=== PATIENT | female | born 1990 | race Two or more races ===

== ENCOUNTER 2024-10-18 11:25 | Outpatient (CLI) | payer MEDICAID, SELFPAY ==
[2024-10-18] VITALS (23 sets, daily range): BP systolic 122–128; BP diastolic 76–77; PULSE 81–100; RESP 18; TEMP 36.9; O2SAT 81–99; BMI 41.3
[2024-10-18 13:04] LABS: Collection Type, Urine Clean Catch
[2024-10-18 13:16] LABS: Bacteria,Urine 2+; Bilirubin,Urine Negative (Negative); Blood,Urine Negative (Negative); Clarity,Urine Clear (Clear/Hazy); Color,Urine Colorless (Lt Yel-Yel); Glucose, Urine Negative (Negative); Ketones,Urine Negative (Negative); Leukocyte Esterase,Urine Positive (Negative); Nitrite,Urine Negative (Negative); PH,Urine 6.5 (5.0-7.0); Protein,Urine Negative (Neg - Trace); RBC,Urine 1 /hpf (0-3); Specific Gravity,Urine 1.005 (1.001-1.035); Squamous Epithelial Cell,Urine 4 /hpf (0-5); Urobilinogen,Urine Negative mg/dL (0.0-1.0); WBC,Urine 4 /hpf (0-5)
== END 2024-10-18 13:45 | disposition home or self-care (01) ==
LOC: S4S1 11:26 → S4SX 11:26
PROVIDERS: Referring Provider Obstetrics & Gynecology; Visit Provider Obstetrics & Gynecology
DX: Z34.83 Encounter for supervision of other normal pregnancy, third trimester (principal); Z36.9 Encounter for antenatal screening, unspecified; Z3A.30 30 weeks gestation of pregnancy
CPT/HCPCS: 59025; 81001

== ENCOUNTER 2024-10-26 03:20 | Observation (INO) | payer MEDICAID, SELFPAY ==
[2024-10-26] VITALS (32 sets, daily range): BP systolic 100–112; BP diastolic 65–71; PULSE 78–99; RESP 17; TEMP 36.8; O2SAT 97–100; BMI 41.2
[2024-10-26] MEDS: SODIUM CHLORIDE 0.9% 1000 ML 1,000 ML 125 ML IV (04:10)
[2024-10-26 04:41] LABS: Collection Type, Urine Clean Catch
[2024-10-26 05:16] LABS: Bilirubin,Urine Negative (Negative); Blood,Urine 2+ (Negative); Clarity,Urine Turbid (Clear/Hazy); Color,Urine Yellow (Lt Yel-Yel); Culture Indicated,Urine Contaminated; Glucose, Urine Negative (Negative); Ketones,Urine Negative (Negative); Leukocyte Esterase,Urine Positive (Negative); Nitrite,Urine Negative (Negative); Protein,Urine Trace (Neg - Trace); RBC,Urine 5 /hpf (0-3); Specific Gravity,Urine 1.016 (1.001-1.035); Squamous Epithelial Cell,Urine 11 /hpf (0-5); Urobilinogen,Urine Negative mg/dL (0.0-1.0); WBC,Urine 62 /hpf (0-5)
[2024-10-26 05:18] LABS: FFN Specimen Descripton Clr Colrless Aqueous; Fetal Fibronectin Negative (Negative)
[2024-10-26] MEDS: cephALEXin 250 MG CAPSULE 500 MG PO (05:38)
--- NOTE | 2024-10-26 15:54 | PC.NURSE ---
Phone call received from patient stating her prescription was not called into the [facility] pharmacy on [address] this morning at 0546. [facility] pharmacy [address] called spoke to Dominga states that prescription has not been received by pharmacy or left on voicemail. Keflex 500mg PO BID x 7 days called into pharmacy.
== END 2024-10-26 05:46 | disposition home or self-care (01) ==
PROVIDERS: Admitting Provider Obstetrics & Gynecology; Visit Provider Nurse Practitioner Women's Health
DX: O46.93 Antepartum hemorrhage, unspecified, third trimester (principal); Z3A.31 31 weeks gestation of pregnancy
CPT/HCPCS: 59025; 59899; 81001; 82731; J7030; A9270

== ENCOUNTER 2024-11-08 01:26 | Inpatient (IN) | payer MEDICAID, SELFPAY ==
[2024-11-08] VITALS (272 sets, daily range): BP systolic 90–140; BP diastolic 51–87; PULSE 73–169; RESP 16–98; TEMP 36.4–36.8; O2SAT 59–100; BMI 41.3
[2024-11-08] MEDS: TERBUTALINE SULF INJ 1 MG/ML VIAL 0.25 MG SC ×2 (03:05→03:30)
[2024-11-08] MEDS: BETAMET ACET/BETAMET NA PH (Celestone) 6 MG/ML VIAL 12 MG IM (03:06)
[2024-11-08] MEDS: SODIUM CHLORIDE 0.9% 1000 ML 1,000 ML 999 ML IV (03:40)
--- NOTE | 2024-11-08 04:01 | XR_ITS ---
Examination: Complete OB ultrasound greater than 14 weeks Date and time of exam: November 08, 2024 at 0500 hrs. Indications: Pelvic contractions beginning 2100 hrs. Last night Findings: Viable intrauterine single fetus with single amniotic sac presentation cephalic Cardiac motion 160 BPM Placenta anterior grade 2 Umbilical cord insertion seen Amniotic fluid index 10.6 cm Cervix 4.0 cm Ovaries obscured by bowel gas. Composite estimated gestational age based on BPD, head circumference, abdominal circumference, femur length is 33 weeks 3 days Estimated weight 2188.9 g. Survey of intracranial anatomy, spinal anatomy, abdominal anatomy, four-chamber heart performed with no abnormalities identified. Impression: Viable intrauterine gestation cephalic presentation Estimated gestational age 33 weeks 3 days Estimated weight 2188.9 g.
[2024-11-08] MEDS: NIFEdipine 10 MG CAPSULE 20 MG PO (04:33)
[2024-11-08] MEDS: Ampicillin Inj 2,000 MG in SODIUM CHLORIDE 0.9% (P) 100 ML 200 MG IV (05:33)
[2024-11-08 05:58] LABS: Basophils % (Auto) 0 % (0-2.5); Eosinophils # (Auto) 0.2 Thou/mm3 (0.0-0.5); Eosinophils % (Auto) 2 % (0-10); Hematocrit 41.4 % (36.0-46.0); Hemoglobin 14.6 g/dL (12.0-16.0); Immature Granulocytes % (Auto) 1 % (0-0); Immature Granulocytes Auto 0.07 Thou/mm3 (0.00-0.00); Lymphocytes # (Auto) 2.1 Thou/mm3 (1.0-4.8); Lymphocytes % (Auto) 21 % (10-50); Mean Corpuscular HGB Conc 35.3 g/dl (31.0-37.0); Mean Corpuscular Hemoglobin 30.3 pg (25.0-35.0); Mean Corpuscular Volume 86 fL (80-100); Monocytes # (Auto) 0.9 Thou/mm3 (0.0-0.8); Monocytes % (Auto) 8 % (0-12); Neutrophils # (Auto) 7.1 Thou/mm3 (1.8-7.7); Neutrophils % (Auto) 69 % (37-80); Nucleated Red Blood Cell % 0 /100 WBC (0); Platelet Count 142 Thou/mm3 (140-440); RDW Standard Deviation 43.7 fL (36.4-46.3); Red Blood Count 4.82 Miln/mm3 (4.00-5.20); White Blood Count 10.4 Thou/mm3 (3.6-11.0)
[2024-11-08 06:39] LABS: Syphilis Nonreactive (Nonreactive)
--- NOTE | 2024-11-08 07:55 | PRELIM_ITS ---
Obstetric ultrasound. November 08, 2024 0500 hours Clinical history: Comp OB, EFW, and Presentation No prior study is available for comparison. Findings:There is a gravid uterus with a live fetus in ceph alic presentation of mean gestational age 33 weeks and 3 days (by biometry). cardiac acti vity is present at a heart rate of 160 beats per minute. The placenta is anterior in location, maturi ty grade 2. There is no evidence of placenta previa or retroplacental hemorrhage. Amniotic fluid is a dequate (MARCIAL = 10.6 cm). Estimated weight is 2188.9 grams+/- 324grams. Estimated due date by radha marino is 12/24/2024.Cervical length is 4 cm.Impression:Gravid uterus with a single live fetus in c ephalic presentation of mean gestational age 33 weeks and 3 days. Report Electronically Signed By: Sadie Salazar 11/08/2024 7:54:41 AM [EST]
[2024-11-08] MEDS: MEPERIDINE INJ 50 MG/ML VIAL 75 MG IVP (08:00)
[2024-11-08] MEDS: SODIUM CHLORIDE 0.9% 1000 ML 1,000 ML 125 ML IV ×2 (08:01→17:43)
[2024-11-08] MEDS: PROMETHAZINE INJ 25 MG/ML VIAL IV (08:17)
--- NOTE | 2024-11-08 08:53 | PD.LDHP ---
Documentation for date of: 11/08/24 OB Labor/Induct. HPI History of Present Illness : 6 Term pregnancies: 4 pregnancies: 0 Living children: 4 History of Abortions: Spontaneous and Elective: 1 History of sections: No History of : No History of Present Adequate Care: Yes Review of Systems Review of Systems Systems Reviewed: All systems reviewed, normal except as documented Past Medical History Surgical History SURGICAL: Negative Section Meds Home Medications and Allergies Home Medications ?Medication ?Instructions ?Recorded ?Confirmed ?Type vit no.95-ferrous 1 tab PO 1XD 10/18/24 11/08/24 History fumarate 28 mg-folic acid 800 mcg tablet () metformin 500 mg tablet 500 mg PO 10/26/24 10/26/24 History Allergies Allergy/AdvReac Type Severity Reaction Status Date / Time No Known Allergies Allergy Verified 11/08/24 02:14 OB Exam Physical Exam Vital signs: Temp Pulse Resp BP Pulse Ox 97.7 F 99 18 119/68 94 L 11/08/24 07:14 11/08/24 08:31 11/08/24 07:14 11/08/24 08:31 11/08/24 08:50 OB Results Labs 11/08/24 05:25 Labs: Short CBC 11/08/24 Range/Units 05:25 WBC 10.4 (3.6-11.0) Thou/mm3 Hgb 14.6 (12.0-16.0) g/dL Hct 41.4 (36.0-46.0) % Plt Count 142 (140-440) Thou/mm3
[2024-11-08] MEDS: Ampicillin Inj 1,000 MG in SODIUM CHLORIDE 0.9% (P) 50 ML 50 MG IV ×3 (09:32→20:55)
[2024-11-08] MEDS: metFORMIN 500 MG TABLET PO ×2 (09:32→20:54)
[2024-11-08] MEDS: INSULIN HUM REGULAR 1 UNIT/0.01 ML (PER UNIT) SC ×2 (11:17→17:49)
[2024-11-08] MEDS: NIFEdipine 10 MG CAPSULE PO ×2 (12:42→20:54)
--- NOTE | 2024-11-08 20:31 | PC.NURSE ---
called and given patient update and status. Provider notified cervical exam unchanged and dark red blood noted upon checking cervix. Ordered to keep patient overnight and recheck cervix at change of shift as well as repeat CBC and complete OB US in the morning.
[2024-11-08] MEDS: fentaNYL CIT INJ 50 mCg/ML AMP 2ML 100 MCG IV (21:30)
[2024-11-09] VITALS (325 sets, daily range): BP systolic 97–135; BP diastolic 54–74; PULSE 71–124; RESP 16–20; TEMP 36.5–36.7; O2SAT 92–99
[2024-11-09] MEDS: Ampicillin Inj 1,000 MG in SODIUM CHLORIDE 0.9% (P) 50 ML 50 MG IV ×3 (00:53→08:32)
[2024-11-09] MEDS: BETAMET ACET/BETAMET NA PH (Celestone) 6 MG/ML VIAL 12 MG IM (03:04)
[2024-11-09] MEDS: SODIUM CHLORIDE 0.9% 1000 ML 1,000 ML 125 ML IV (03:13)
[2024-11-09 06:44] LABS: Basophils % (Auto) 0 % (0-2.5); Eosinophils % (Auto) 0 % (0-10); Hemoglobin 12.9 g/dL (12.0-16.0); Immature Granulocytes % (Auto) 1 % (0-0); Immature Granulocytes Auto 0.09 Thou/mm3 (0.00-0.00); Lymphocytes # (Auto) 1.5 Thou/mm3 (1.0-4.8); Lymphocytes % (Auto) 13 % (10-50); Mean Corpuscular HGB Conc 33.9 g/dl (31.0-37.0); Mean Corpuscular Hemoglobin 29.7 pg (25.0-35.0); Mean Corpuscular Volume 87 fL (80-100); Monocytes # (Auto) 0.5 Thou/mm3 (0.0-0.8); Monocytes % (Auto) 4 % (0-12); Neutrophils # (Auto) 9.5 Thou/mm3 (1.8-7.7); Neutrophils % (Auto) 82 % (37-80); Nucleated Red Blood Cell % 0 /100 WBC (0); Platelet Count 161 Thou/mm3 (140-440); Red Blood Count 4.35 Miln/mm3 (4.00-5.20); White Blood Count 11.6 Thou/mm3 (3.6-11.0)
--- NOTE | 2024-11-09 07:00 | XR_ITS ---
Examination: Complete OB ultrasound greater than 14 weeks Date and time of exam: November 09, 2024 0853 hrs. Indications: Bloody discharge and pelvic contractions today Findings: Viable intrauterine single fetus with single amniotic sac presentation cephalic spine maternal right. Cardiac motion 153 BPM. Placenta anterior grade 2 no abruption Amniotic fluid incompletely visualized Ovaries obscured by bowel gas. Composite estimated gestational age based on BPD, head circumference, abdominal circumference, femur length is 36 weeks 1 day Estimated weight 2828 g. Survey of intracranial anatomy, spinal anatomy, abdominal anatomy, four-chamber heart performed with no abnormalities identified. Impression: Viable intrauterine gestation cephalic presentation No placental abruption Estimated gestational age 36 weeks 1 day.
[2024-11-09] MEDS: NIFEdipine 10 MG CAPSULE PO (07:15)
[2024-11-09] MEDS: metFORMIN 500 MG TABLET PO (08:31)
--- NOTE | 2024-11-09 12:39 | ESHP_ITS ---
Documentation for date of: 11/09/24 OB Labor/Induct. HPI History of Present Illness : 5 Para: 3 Term pregnancies: 3 pregnancies: 0 Living children: 3 History of Abortions: Spontaneous and Elective: 1 History of sections: No History of : No History of present illness: The patient, Brigida Xiao, is a , 33-week and 4-day woman who has been hospitalized for a couple of days. Patient initially presented with contractions every 3 to 5 minutes and she was observed antepartum for labor symptoms. She has made no cervical change. However she continues to have vaginal bleeding and on today's ultrasound she has complete anhydramnios. Current is significant for gestational diabetes which was diagnosed by an abnormal 2-hour glucose tolerance test just recently and patient has not initiated any treatment. She is receiving sliding scale insulin coverage during her hospital admission The latest ultrasound revealed no fluid around the baby, and the fetus is measuring larger at 36 weeks. The patient has not experienced any leaking of fluid. She expressed concern about the potential transfer of her baby to another facility but was reassured by the doctor that the baby would not need to be transferred as she is very close to 34 weeks gestation. The doctor also confirmed that the baby has received the necessary injections for lung development and that pediatric doctors are available at the current facility. I also proceeded to perform a bedside ultrasound which confirms the anhydramnios and possible marginal abruption. Composite estimated gestational age based on BPD, head circumference, abdominal circumference, femur length is 36 weeks 1 day Estimated weight 2828 g. History of Present Adequate Care: Yes Past Medical History Surgical History SURGICAL: Negative Section Meds Home Medications and Allergies Home Medications ?Medication ?Instructions ?Recorded ?Confirmed ?Type vit no.95-ferrous 1 tab PO 1XD 10/18/24 11/08/24 History fumarate 28 mg-folic acid 800 mcg tablet () metformin 500 mg tablet 500 mg PO 10/26/24 10/26/24 History Allergies Allergy/AdvReac Type Severity Reaction Status Date / Time No Known Allergies Allergy Verified 11/08/24 02:14 OB Exam Physical Exam Vital signs: Temp Pulse Resp BP Pulse Ox 97.7 F 84 20 119/73 97 11/09/24 08:37 11/09/24 12:18 11/09/24 08:37 11/09/24 12:18 11/09/24 12:34 Constitutional Constitutional: no acute distress Routine HEENT Exam Head: Present normocephalic and atraumatic Eye: Present EOMI and PERRL ENT: Present mucous membranes moist Routine Neck Exam Neck: Present supple and trachea midline Routine Cardiovascular Exam Cardiovascular: Present RRR Routine Abdominal Exam Abdominal: Present soft and normoactive bowel sounds Detailed Labor and Delivery Exam Dilation (cm): 1 Effacement (%): 30 Cervix position: posterior Baseline heart rate: 145 monitor accelerations: 15x15 monitor decelerations: None Routine Extremities Exam Extremities: Present full ROM Routine Skin Exam Skin: Present intact, dry and warm Routine Neurological Exam Neurological: Present alert, oriented X3 and CN II-XII intact Routine Psychiatric Exam Psychiatric: Present normal affect and normal thought process OB Results Labs 11/09/24 06:10 Labs: Short CBC 11/09/24 Range/Units 06:10 WBC 11.6 H (3.6-11.0) Thou/mm3 Hgb 12.9 (12.0-16.0) g/dL Hct 38.0 (36.0-46.0) % Plt Count 161 (140-440) Thou/mm3 OB Assessment & Plan Assessment and Plan (1) Gestational diabetes: Status: Acute (2) Anhydramnios in third trimester: Status: Acute (3) Placental abruption in third trimester: Status: Acute Assessment and plan: Anhydramnios: - Confirmed by ultrasound, no fluid around baby. - Doctor personally verified findings via ultrasound. - Proceed with induction of labor due to risk of umbilical cord compression. Growth Discrepancy: - Gestational age 34 weeks by dates, ultrasound shows 36 weeks. - Monitor growth during induction and labor. Induction of Labor: - Start with vaginal Cervidil for 12 hours, followed by second medication if needed. - Consult peds hospitalist for agreement on induction plan (patient at 33 weeks and 4 days). Possible Placental Abruption: - Ultrasound shows blood clot, suggesting possible abruption. - Closely monitor during induction and labor for signs of worsening abruption or distress. Care: - Patient received two Betamethasone injections for lung maturity. - Coordinate with pediatric doctors for post-delivery care. - Baby likely won't require transfer to another facility (close to 34 weeks)., EFW 2800gms+, c/w 36w EGA Patient Education and Communication: - Have Slovenian-speaking staff explain induction process and reasons to patient. - Clarify to patient that baby won't need facility transfer due to gestational age.
[2024-11-09] MEDS: RINGERS LACTATED 1000 ML 1,000 ML 125 ML IV ×2 (12:50→23:49)
[2024-11-09] MEDS: DINOPROSTONE 10 MG VAG.SUPP VAGINAL (14:50)
[2024-11-09] MEDS: fentaNYL CIT INJ 50 mCg/ML AMP 2ML 100 MCG IV (19:03)
[2024-11-10] VITALS (352 sets, daily range): BP systolic 89–147; BP diastolic 50–91; PULSE 63–107; RESP 16–18; TEMP 36.6–37.3; O2SAT 89–100
[2024-11-10] MEDS: MISOPROSTOL 50 mCg TABLET PO (05:50)
[2024-11-10] MEDS: Ampicillin Inj 1,000 MG in SODIUM CHLORIDE 0.9% (P) 50 ML 50 MG IV ×2 (09:20→13:20)
[2024-11-10] MEDS: OXYTOCIN in NS 30 units 30 UNIT/500 ML BAG IV (13:20)
[2024-11-10] MEDS: OXYTOCIN in NS 20 units 20 UNIT/1,000 ML BAG 125 UNIT IV (17:20)
[2024-11-10] MEDS: METHYLERGONOVINE INJ 0.2 MG/ML VIAL IM (17:26)
--- NOTE | 2024-11-10 17:42 | PD.LDDELS ---
Data ([facility]) Data Hx Section: No : 5 Term: 3 : 0 : 1 Delivery Data ([facility]) Labor Data Stimulated/Augmented: Yes Induction: Yes Method: AROM Rupture Type: AROM Amniotic Fluid: Clear Delivery Data Delivery Date: 11/10/24 Delivery Time: 17:20 Gestational age (weeks): 33 Gestational age (days): 4 Placenta Delivery Date: 11/10/24 Placenta Delivery Time: 17:40 Delivered by: Long Abreu Supervisor Screen Making at delivery: Yes Delivery Method Delivery: Vaginal Presentation: Vertex Placenta Placenta Delivery: Spontaneous Placenta Cultures Obtained: Yes Placenta Sent for Examination: Yes Cord Sample: Cord Blood Obtained Episiotomy Episiotomy: None EBL Estimated blood loss (ml): 200 Umbilical Cord Umbilical Vessels: 3 Nuchal Cord: Not Applicable Body Cord: Not Applicable [place] Data ([facility]) [place] Data Infant Gender: Female weight (lbs): 2560 g length: 49.53 cm
[2024-11-10] MEDS: MINERAL OIL 30 ML UDC TOP (18:02)
[2024-11-10] MEDS: TRANEXAMIC ACID 1,000 MG IVPB 1,000 MG/100 ML BAG 200 MG IV (18:03)
[2024-11-10] MEDS: HYDROcodone/APAP 5/325 TABLET 2 TAB PO (18:43)
--- NOTE | 2024-11-10 19:15 | PC.NURSE ---
BAKRI INSERTED BY MD POOLE AT 1740. 300ML STERILE WATER INSERTED. ATTACHED TO COLLAZO BAG TO DRAIN AT BEDSIDE. SECURED TO LEG WITH TAPE.
--- NOTE | 2024-11-10 20:58 | XR_ITS ---
Examination: AP chest single view Technique: AP portable semiupright chest single view Exam date and time: November 10, 2024 2112 hrs. Comparison June 01, 2021 Indications: Abnormal lung zones on auscultation today, coughing Findings: Early pneumonia left base Normal heart size The osseous structures are intact Impression: Early pneumonia left base
--- NOTE | 2024-11-10 21:02 | PC.NURSE ---
2034 Breast pump and education given to pt on how long to pump and how often. Pump set up by RN and pt began pumping with no further questions.
[2024-11-10] MEDS: PIPER/TAZO INJ 3.375 GM in SODIUM CHLORIDE 0.9% (P) 50 ML IV (22:24)
[2024-11-10] MEDS: AZITHROMYCIN INJ 500 MG in SODIUM CHLORIDE 0.9% 250 ML 250 ML 250 MG IV (22:52)
[2024-11-11] MEDS: IBUPROFEN TAB 400 MG TABLET 800 MG PO ×2 (03:10→15:22)
[2024-11-11 03:12] VITALS: BP 106/70; PULSE 71; RESP 16; TEMP 36.9; O2SAT 95
[2024-11-11 06:51] LABS: Basophils % (Auto) 0 % (0-2.5); Eosinophils % (Auto) 0 % (0-10); Hematocrit 35.5 % (36.0-46.0); Hemoglobin 12.4 g/dL (12.0-16.0); Immature Granulocytes % (Auto) 1 % (0-0); Lymphocytes # (Auto) 2.2 Thou/mm3 (1.0-4.8); Lymphocytes % (Auto) 15 % (10-50); Mean Corpuscular HGB Conc 34.9 g/dl (31.0-37.0); Mean Corpuscular Volume 86 fL (80-100); Monocytes # (Auto) 1.2 Thou/mm3 (0.0-0.8); Monocytes % (Auto) 9 % (0-12); Neutrophils # (Auto) 10.9 Thou/mm3 (1.8-7.7); Neutrophils % (Auto) 75 % (37-80); Nucleated Red Blood Cell # 0.05 Thou/mm3 (0.00-0.00); Nucleated Red Blood Cell % 0 /100 WBC (0); Platelet Count 188 Thou/mm3 (140-440); Red Blood Count 4.14 Miln/mm3 (4.00-5.20); White Blood Count 14.5 Thou/mm3 (3.6-11.0)
[2024-11-11] MEDS: DOCUSATE SOD 100 MG CAPSULE PO (07:42)
[2024-11-11] MEDS: PIPER/TAZO 3.375 GM 50 ML IV ×3 (07:42→22:28)
[2024-11-11 08:00] VITALS: BP 104/71; PULSE 76; RESP 18; TEMP 36.4; O2SAT 95
[2024-11-11 11:40] VITALS: BP 108/73; PULSE 70; RESP 18; TEMP 36.3; O2SAT 94
[2024-11-11 15:33] VITALS: BP 109/71; PULSE 77; RESP 16; TEMP 36.4; O2SAT 97
--- NOTE | 2024-11-11 17:16 | PD.LDPPPRG ---
Subjective Subjective Interval history[facility] doing well. Has been tolerating diet , denies nause a, no fever , slight pain in her belly 02/13. Admits coughing Exam Vital Signs Temp Pulse Resp BP Pulse Ox O2 Del Method 97.5 F 77 16 109/71 97 Room Air 11/11/24 15:33 11/11/24 15:33 11/11/24 15:33 11/11/24 15:33 11/11/24 15:33 11/11/24 15:33 Constitutional Constitutional: no acute distress Routine HEENT Exam Head: Present normocephalic and atraumatic Eye: Present EOMI and PERRL ENT: Present mucous membranes moist Routine Neck Exam Neck: Present supple and trachea midline Routine Respiratory Exam Respiratory: Present chest non-tender, lungs clear, normal breath sounds and no resp distress Routine Cardiovascular Exam Cardiovascular: Present RRR Routine Abdominal Exam Abdominal: Present soft and normoactive bowel sounds Routine Extremities Exam Extremities: Present full ROM Routine Skin Exam Skin: Present intact, dry and warm Routine Neurological Exam Neurological: Present alert, oriented X3 and CN II-XII intact Routine Psychiatric Exam Psychiatric: Present normal affect and normal thought process Objective Labs 11/11/24 06:36 Labs: Laboratory Results - last 24 hr 11/11/24 06:36 WBC 14.5 H RBC 4.14 Hgb 12.4 Hct 35.5 L MCV 86 MCH 30.0 MCHC 34.9 RDW Std Deviation 46.0 Plt Count 188 Neut % (Auto) 75 Lymph % (Auto) 15 [place] % (Auto) 9 Eos % (Auto) 0 Baso % (Auto) 0 Neut # (Auto) 10.9 H Lymph # (Auto) 2.2 [place] # (Auto) 1.2 H Eos # (Auto) 0.0 Baso # (Auto) 0.0 Immature Gran # (Auto) 0.10 H Absolute Nucleated RBC 0.05 H Immature Gran % 1 H Nucleated RBC % 0 Assessment & Plan Problem List (1) Gestational diabetes: Status: Acute (2) Anhydramnios in third trimester: Status: Acute (3) Placental abruption in third trimester: Status: Acute Assessment Comment Assessment comment: 34 y/o s/p vaginal delivery, PPH, Bakri placement, PPD#1 Bleeding slight on glenn pad pneumonia on XRay, started on Azithromycin bakri output 50cc, dark , has been glenn same overnight VSS Hb 12.4 today Plan Comment Plan Comment: Bakri to be continued until the output drops to 20-25cc antibiotics to continue Time Spent With Patient Time: Total time spent is greater than 50% in coordination of care (as documented) at patient's floor/unit and/or counseling patient:
[2024-11-11 17:56] LABS: Hematocrit 37.2 % (36.0-46.0); Hemoglobin 12.7 g/dL (12.0-16.0)
[2024-11-11 20:00] VITALS: BP 111/71; PULSE 75; RESP 18; TEMP 36.4; O2SAT 95
[2024-11-11] MEDS: AZITHROMYCIN INJ 500 MG in SODIUM CHLORIDE 0.9% 250 ML 250 ML 250 MG IV (20:58)
[2024-11-12] VITALS: BP 106/73; PULSE 70; RESP 16; TEMP 36.6; O2SAT 95
[2024-11-12 04:00] VITALS: BP 108/70; PULSE 65; RESP 17; TEMP 36.6; O2SAT 97
[2024-11-12 05:35] LABS: Hematocrit 36.9 % (36.0-46.0); Hemoglobin 12.7 g/dL (12.0-16.0)
[2024-11-12] MEDS: PIPER/TAZO 3.375 GM 50 ML IV ×3 (06:00→23:53)
[2024-11-12 08:05] VITALS: BP 105/70; PULSE 67; RESP 17; TEMP 36.8; O2SAT 96
[2024-11-12] MEDS: IBUPROFEN TAB 400 MG TABLET 800 MG PO ×2 (08:35→17:44)
[2024-11-12] MEDS: DOCUSATE SOD 100 MG CAPSULE PO (08:35)
[2024-11-12 12:00] VITALS: BP 99/64; PULSE 62; RESP 16; TEMP 36.8; O2SAT 99
--- NOTE | 2024-11-12 13:52 | PD.LDPPPRG ---
Subjective Subjective Interval history: Patinet seen at bedside , no pain , feels need to use restroom. Exam Vital Signs Temp Pulse Resp BP Pulse Ox O2 Del Method 98.2 F 67 17 105/70 96 Room Air 11/12/24 08:05 11/12/24 08:05 11/12/24 08:05 11/12/24 08:05 11/12/24 08:05 11/12/24 08:05 Constitutional Constitutional: no acute distress Routine HEENT Exam Head: Present normocephalic and atraumatic Eye: Present EOMI and PERRL ENT: Present mucous membranes moist Routine Neck Exam Neck: Present supple and trachea midline Routine Respiratory Exam Respiratory: Present chest non-tender, lungs clear, normal breath sounds and no resp distress Routine Cardiovascular Exam Cardiovascular: Present RRR Routine Abdominal Exam Abdominal: Present soft and normoactive bowel sounds Routine Extremities Exam Extremities: Present full ROM Routine Skin Exam Skin: Present intact, dry and warm Routine Neurological Exam Neurological: Present alert, oriented X3 and CN II-XII intact Routine Psychiatric Exam Psychiatric: Present normal affect and normal thought process Objective Labs 11/12/24 04:58 Labs: Laboratory Results - last 24 hr 11/11/24 11/12/24 17:28 04:58 Hgb 12.7 12.7 Hct 37.2 36.9 Assessment & Plan Problem List (1) Gestational diabetes: Status: Acute (2) Anhydramnios in third trimester: Status: Acute (3) Placental abruption in third trimester: Status: Acute Assessment Comment Assessment comment: 34 y/o s/p VD , PPH Bakri balloon placemnet , POD#2 Bakri and camejo removed already 'hb stable at 12 VSS Plan Comment Plan Comment: Continue PP care will repeat Hb tomorrow morning before discharge Time Spent With Patient Time: Total time spent is greater than 50% in coordination of care (as documented) at patient's floor/unit and/or counseling patient:
[2024-11-12 16:00] VITALS: BP 112/72; PULSE 64; RESP 16; TEMP 36.9; O2SAT 97
[2024-11-12 17:51] LABS: Hematocrit 36.6 % (36.0-46.0); Hemoglobin 12.8 g/dL (12.0-16.0)
[2024-11-12] MEDS: AZITHROMYCIN INJ 500 MG in SODIUM CHLORIDE 0.9% 250 ML 250 ML 250 MG IV (21:28)
[2024-11-12 21:37] VITALS: BP 100/62; PULSE 68; RESP 20; TEMP 36.6; O2SAT 98
[2024-11-13 05:36] VITALS: BP 115/73; PULSE 60; RESP 16; TEMP 36.3; O2SAT 98
[2024-11-13] MEDS: PIPER/TAZO 3.375 GM 50 ML IV (05:43)
[2024-11-13] MEDS: IBUPROFEN TAB 400 MG TABLET 800 MG PO (05:43)
[2024-11-13 08:40] VITALS: BP 116/78; PULSE 65; RESP 18; TEMP 36.7; O2SAT 98
[2024-11-13] MEDS: DOCUSATE SOD 100 MG CAPSULE PO (08:54)
--- NOTE | 2024-11-13 09:38 | PD.LDDS ---
DS: Providers Provider Date of admission: 11/08/24 20:25 Primary care physician: Physician No Primary/Family Admitting Provider: Long Abreu MD Attending Provider on Admission: Judson Alvarez MD Consults: 11/10/24 18:15 Referral Routine Comment: Attending Provider on DC: Angeles Younger MD Discharging Provider: Angeles Younger MD DS: Diagnosis Discharge Diagnosis (1) Placental abruption in third trimester: Status: Acute (2) Anhydramnios in third trimester: Status: Acute (3) Gestational diabetes: Status: Acute (4) Community acquired pneumonia: Status: Acute Problem List Completed Was Problem List Reviewed/Reconciled?: Yes Summary/Hosp Course Brief History: Brigida Paz is a [id number] s/p at 33+wk after undergoing IOL for anhydramnios with marginal placental abruption after presenting with concern for possible PTL, she received betamethasone course prior to induction. Course was complicated by development of left lower lobe pneumonia as noted on CXR and she was started on IV zosyn and azithromycin with improvement in symptoms. Now just slight residual cough, satting 97-99% in room air and afebrile. Baby is in NICU. Patient feels ready for discharge home, meeting all milestones. She has normal vitals and exam. Hemodynamically stable. Peripartum Data Delivery Method: Normal Vaginal Delivery complications: other (LLL pneumonia) Status at Discharge Functional status at discharge: independent ambulation Overall status at discharge: patient is back to baseline Time Spent with Patient Time attestation: Total time spent providing and/or coordinating discharge services: Time spent: Greater than 30 minutes Exam Vital Signs Temp Pulse Resp BP Pulse Ox O2 Del Method 98.1 F 65 18 116/78 98 Room Air 11/13/24 08:40 11/13/24 08:40 11/13/24 08:40 11/13/24 08:40 11/13/24 08:40 11/13/24 08:40 Narrative Exam General: well developed, well nourished, no acute distress, conversant (exam performed with RN for Greek translation) Cardiac: normal heart rate Lungs: breathing without distress Abdomen: soft, gravid, non-tender, no rebound or guarding Extremities: no pain with palpation of calves, no BLE edema Discharge Plan Plan Patient Disposition: HOME (Self Care) Patient condition on transfer: Stable Health Concerns: Pneumonia treated with IV antibiotics and transitioning to oral antibiotics on discharge Gestational diabetes with late diagnosis in . She will need a 2 hour glucose test 6-12 weeks after delivery. Prescriptions/Referrals Prescriptions/Med Rec: New docusate sodium 100 mg Capsule 100 mg PO BID 10 Days Qty: 20 0RF azithromycin 500 mg tablet 500 mg PO QDAY 3 Days Qty: 3 0RF amoxicillin-pot clavulanate [Augmentin XR] 1,000-62.5 mg tablet extended release 12 hr 2 tab PO BID 5 Days Qty: 20 0RF ibuprofen 800 mg tablet 800 mg PO Q8H PRN (Reason: pain) 10 Days Qty: 20 0RF Continued PNV cmb#95-ferrous fumarate-FA [] 28 mg iron- 800 mcg tablet 1 tab PO 1XD Discontinued metformin 500 mg tablet 500 mg PO BID Referrals: No Primary/Family,Physician [Primary Care Provider] - Patient/Caregiver Discharge Instructions Discharge Activity: activity as tolerated Other Discharge Activity Instructions:: vaginal rest and no heavy lifting greater than 10 pounds for 6 weeks Other Discharge Diet Instructions: Regular diet Education Materials: After a Vaginal , Gestational Diabetes After ... Print Language: Greek Activity Restrictions/Additional Instructions: Follow up with OBGYN in 1 to 2 weeks for close follow up given complication of pneumonia. Discussed importance of taking full course of antibiotics and discussed return precautions at length. Stand Alone Forms: Kimberly Award Info., Patient Portal Info Letter, Work/Release Restrictions Discharge Order Discharge Orders: Discharge (Routine); Ordered 11/13/24 Ordered By: Angeles Younger Planned Discharge Date 11/13/24 (2) Anhydramnios in third trimester Qualifiers: Fetus number: single or unspecified fetus Qualified Code(s): O41.03X0 - Oligohydramnios, third trimester, not applicable or unspecified (3) Gestational diabetes Qualifiers: Gestational diabetes mellitus control: unspecified Trimester: third trimester Qualified Code(s): O24.419 - Gestational diabetes mellitus in , unspecified control (4) Community acquired pneumonia Qualifiers: Laterality: left Lung location: lower lobe of lung Qualified Code(s): J18.9 - Pneumonia, unspecified organism
--- NOTE | 2024-11-13 10:46 | CHAP ---
Patient was visited by a Spiritual Care Volunteer on 11/13/2024 between 0900 and 1036 and received comfort, encouragement and/or prayer.
== END 2024-11-13 12:33 | disposition home or self-care (01) | DRG 542 ==
LOC: S4SX 11-10 19:11 → S4NX 11-11 08:20 → S4SX 11-12 08:21
PROVIDERS: Admitting Provider Obstetrics & Gynecology; Visit Provider Student in an Organized Health Care Education/Training Program
DX: O41.03X0 Oligohydramnios, third trimester, not applicable or unspecified (principal); O45.93 Premature separation of placenta, unspecified, third trimester; Z3A.34 34 weeks gestation of pregnancy; O24.424 Gestational diabetes mellitus in childbirth, insulin controlled; Z37.0 Single live birth; O26.843 Uterine size-date discrepancy, third trimester; O99.53 Diseases of the respiratory system complicating the puerperium; J18.9 Pneumonia, unspecified organism; O72.1 Other immediate postpartum hemorrhage
CPT/HCPCS: 36415; 59025; 59409; 71045; 76805; 85014; 85018; 85025; 86780; 86850; 86900; 86901; 87040; 94762; J0290; J0456; J0702; J1815; J2175; J2210; J2543; J2550; J2590; J2795; J3010; J3105; J3490; J7030; J7050; J7120; A9270

== ENCOUNTER 2025-07-03 13:14 | Inpatient (IN) | payer MEDICAID, SELFPAY ==
[2025-07-03] VITALS (7 sets, daily range): BP systolic 109–139; BP diastolic 79–98; PULSE 67–106; RESP 17–99; TEMP 36.5–36.9; O2SAT 98; BMI 41.3
--- NOTE | 2025-07-03 13:21 | EKG_ITS ---
[facility] Test Date: 2025-07-03 Pat Name: MARIUSZ BATRES Department: Room: - Gender: Female Supervisor Hard Candy: : 1990 Requested By: Clifton Regan (DOUG) Order Number: [id number] Reading MD: Clifton Regan ([employer]ARD ELECTRICAL PERSON) Measurements Intervals [place] Rate: 104 P: 33 AL: 137 QRS: 91 QRSD: 90 T: 26 QT: 304 QTc: 400 Interpretive Statements SINUS TACHYCARDIA INDETERMINATE AXIS ABNORMAL RHYTHM ECG Compared to ECG 06/01/2021 14:18:35 Indeterminate axis now present Sinus rhythm no longer present /store/S0/[id number]/ecg/[id number].pdf
--- NOTE | 2025-07-03 13:40 | XR_ITS ---
Examination: PA lateral chest 2 views TECHNIQUE: Upright PA lateral chest 2 views Date and time: July 03, 2025 at 1351 hours INDICATIONS: Chest pain today. FINDINGS: Minor prominence left ventricle. No pneumonia or pulmonary edema. The osseous structures are intact IMPRESSION: No active disease
[2025-07-03 14:16] LABS: Basophils # (Auto) 0.0 Thou/mm3 (0.0-0.2); Basophils % (Auto) 0 % (0-2.5); Eosinophils # (Auto) 0.1 Thou/mm3 (0.0-0.5); Eosinophils % (Auto) 1 % (0-10); Hematocrit 45.2 % (36.0-46.0); Hemoglobin 16.0 g/dL (12.0-16.0); Immature Granulocytes Auto 0.05 Thou/mm3 (0.00-0.00); Lymphocytes # (Auto) 2.1 Thou/mm3 (1.0-4.8); Lymphocytes % (Auto) 21 % (10-50); Mean Corpuscular HGB Conc 35.4 g/dl (31.0-37.0); Mean Corpuscular Hemoglobin 30.1 pg (25.0-35.0); Mean Corpuscular Volume 85 fL (80-100); Monocytes # (Auto) 0.8 Thou/mm3 (0.0-0.8); Monocytes % (Auto) 7 % (0-12); Neutrophils # (Auto) 7.2 Thou/mm3 (1.8-7.7); Neutrophils % (Auto) 70 % (37-80); Nucleated Red Blood Cell # 0.00 Thou/mm3 (0.00-0.00); Nucleated Red Blood Cell % 0 /100 WBC (0); Platelet Count 307 Thou/mm3 (140-440); RDW Standard Deviation 43.4 fL (36.4-46.3); Red Blood Count 5.31 Miln/mm3 (4.00-5.20); White Blood Count 10.2 Thou/mm3 (3.6-11.0)
[2025-07-03 14:43] LABS: HCG,Qualitative Serum Negative
[2025-07-03 14:44] LABS: Alanine Aminotransferase 16 U/L (10-49); Albumin, Serum 4.1 gm/dL (3.5-5.0); Albumin/Globulin Ratio 1.5 (1.2-2.2); Alkaline Phosphatase 104 U/L (46-116); Anion Gap 9 (7-16); Aspartate Amino Transferase 19 U/L (0-34); BUN/Creatinine Ratio 16 Ratio (12-20); Bilirubin,Total 0.5 mg/dL (0.3-1.2); Blood Urea Nitrogen 14 mg/dL (9-23); Calcium 9.6 mg/dL (8.3-10.6); Calcium (Corrected) 9.6 mg/dL (8.5-10.1); Carbon Dioxide 25.2 mMol/L (20.0-31.0); Chloride 108 mMol/L (98-107); Creatinine (Component) 0.9 mg/dL (0.6-1.3); Estimated Creatinine Clearance 86.9 mL/min (>60); Globulin 2.7 gm/dL (2.3-3.5); Glucose 94 mg/dL (74-106); Osmolality,Calculated 283 (275-295); Potassium 3.9 mMol/L (3.4-5.1); Sodium 142 mMol/L (136-145); Total Protein 6.8 gm/dL (5.7-8.2); eGFR > 60 See Note
[2025-07-03 14:49] LABS: Troponin I 0.081 ng/mL (0.0-0.045)
--- NOTE | 2025-07-03 15:03 | PD.EDRME ---
Rapid Medical Screening Exam RME Arrival date/time: 07/03/25 13:14 34-year-old female presents to the emergency department today for complaint of chest pain today Chief Complaint: Arrhythmia/Palpitations Time Seen by Provider: 07/03/25 13:39 Vital signs: Vital Signs Temperature 98.5 F 07/03/25 13:29 Pulse Rate 106 H 07/03/25 13:29 Respiratory Rate 18 07/03/25 13:29 Blood Pressure 119/85 H 07/03/25 13:29 Pulse Oximetry (%) 98 07/03/25 13:29 Oxygen Delivery Method Room Air 07/03/25 13:29
[2025-07-03 15:18] LABS: D-Dimer < 250 ng/mL (<600)
--- NOTE | 2025-07-03 16:45 | PD.EDCHEST ---
ED Chest Pain RME/HPI General Chief Complaint: Arrhythmia/Palpitations Stated Complaint: Palpitations today and chest pain Time Seen by Provider: 07/03/25 13:39 Arrival date/time: 07/03/25 13:14 RME / HPI RME / HPI narrative: 34-year-old female patient came in for evaluation regarding left-sided chest pain. Onset of symptoms about 10:30 PM today, lasting for 1 hour, severity mild. Patient denies any fever, denies any cough denies any other complaints. Patient also complained of headache, severity mild. Patient is ambulatory denies any trauma to the chest. Patient told me that she is not taking anything for chronic medical problem. Related Data Home Medications ?Medication ?Instructions ?Recorded ?Confirmed vit no.95-ferrous 1 tab PO 1XD 10/18/24 11/08/24 fumarate 28 mg-folic acid 800 mcg tablet () Allergies Allergy/AdvReac Type Severity Reaction Status Date / Time No Known Allergies Allergy Verified 07/03/25 13:20 Review of Systems Review of Systems Narrative Review of Systems: Review of system reviewed and within normal limits except mentioned in HPI ED Exam Narrative Physical exam: VITAL SIGNS: Reviewed. GENERAL APPEARANCE: Alert and interactive, follows commands, no acute distress, HEAD AND FACE: Non-traumatic. ENT: PERRL, pink conjunctivitis, eyelid no trauma, Mucous membrane moist. NECK: Supple, nontender, no nuchal rigidity. CHEST: No tenderness, no crepitus, no paradoxical movement, no retractions. LUNGS: Clear, well ventilated, symmetric, no rales, no wheezing, no ronchi, no stridor, good breath sounds bilaterally. HEART: Regular rate, regular rhythm, no murmur, no gallops. ABDOMEN: Soft, positive bowel sounds, nondistended, no guarding, nontender, no rebound, no masses, RECTAL: Deferred. GENITAL: Deferred. NEUROLOGICAL: Gross motor function intact sensory function intact, Appropriate for age. MUSCULOSKELETAL: low back nontender, full range of motion. EXTREMITIES: Nontender, full range of motion. SKIN: Color pink, dry, no rash, no lacerations, no abrasions, no contusions. LYMPHATICS: Deferred. Course Quality Measures none Orders Category Date Time Status COVID-19 Screening Questionnaire NOW Care 07/03/25 17:22 Active Decision to Admit X1 Care 07/03/25 17:22 Active EKG (ED ONLY) *Do not use* NOW Care 07/03/25 13:21 Completed EKG (ED Only) Stat Exams 07/03/25 13:21 Draft XR chest 2V Stat Exams 07/03/25 13:40 Completed CBC Stat Lab 07/03/25 14:04 Completed Comprehensive Metabolic Panel Stat Lab 07/03/25 14:04 Completed D-Dimer Stat Lab 07/03/25 14:04 Completed Drug Screen,Urine Stat Lab 07/03/25 16:41 Ordered HCG,Qualitative Serum Stat Lab 07/03/25 14:04 Completed Troponin I Stat Lab 07/03/25 14:04 Completed Troponin I Stat Lab 07/03/25 16:33 Completed Acetaminophen Tab [Tylenol ES Tab] Med 07/03/25 16:48 Discontinued 1,000 mg PO X1 ONE Aspirin Med 07/03/25 17:19 Discontinued 325 mg PO X1 ONE Vital Signs Vital signs: Vital Signs Temperature 98.5 F 07/03/25 13:29 Pulse Rate 106 H 07/03/25 13:29 Respiratory Rate 18 07/03/25 13:29 Blood Pressure 119/85 H 07/03/25 13:29 Pulse Oximetry (%) 98 07/03/25 13:29 Oxygen Delivery Method Room Air 07/03/25 13:29 Chest Pain MDM Narrative MDM Narrative:: 34-year-old female patient came in for evaluation regarding left-sided chest pain. Onset of symptoms about 10:30 PM today, lasting for 1 hour, severity mild. Patient denies any fever, denies any cough denies any other complaints. Patient also complained of headache, severity mild. Patient is ambulatory denies any trauma to the chest. Patient told me that she is not taking anything for chronic medical problem. EKG showed sinus tachycardia, ventricular to 104 bpm, no ST segment elevation or depression noted. Patient initial troponin was noted to be 0.081, repeat troponin after 3 hours went up to 0.182. D-dimer is normal. Currently patient is not having any chest pain. I personally reviewed and interpreted the x-ray of this patient. There is no acute abnormalities found, no infiltrates no pneumothorax no hemothorax normal chest x-ray. Review of other structures was without significant abnormal findings also. I additionally reviewed the radiologist report and agree with the interpretation. Spoke with hospitalist, regarding possible admission, due to elevated troponin. And patient is accepted for admission Patient data External records reviewed:: None Clinical information provided by:: patient Social determinants that could affect healthcare access:: none Patient has the following chronic illnesses:: None How is presenting disease/condition affected by chronic disease/condition?: no chronic disease Evaluation data The following diagnostics were reviewed and interpreted by me:: lab results, radiology exam(s) and EKG tracing(s) Lab and/or radiology exams considered but not ordered:: None Interpretation Summary: See results MDM Medications / Prescriptions Medications or Prescriptions considered but not ordered:: Aspirin Tylenol none Medication administrations:: Medication Administration History Discontinued Medications Acetaminophen (Acetaminophen 500 Mg Tablet) 1,000 mg PO X1 ONE Stop: 07/03/25 16:49 Last Admin: 07/03/25 17:20 Dose: 1,000 mg Documented By: EF Aspirin (Aspirin 325 Mg Tablet) 325 mg PO X1 ONE Stop: 07/03/25 17:20 Aspirin and Tylenol Consultations Consultation(s) initiated? (list below): No Diagnosis Chest Pain Differential Diagnosis: chest pain Most likely diagnosis given after review of the tests above:: Elevated troponin, chest pain Admission Indicated Admission indicated?: indicated Explain why admission is indicated or not indicated:: For further management due to elevated troponin, trending up Admission Request Was there a request for admission?: Yes Admission Attestation Admission request attestation: Discussed case with Hospitalist service regarding admission. Discussed patients ED course, exam findings, labs, and radiology results. The Hospitalist [agrees to accept the patient for admission. Disposition Plan Disposition Plan: Admit Discharge Plan Plan Patient Disposition: Admit Acute Care w/in Hospital Discharge Disposition comment: Stable Prescriptions/Referrals Prescriptions/Med Rec: No Action PNV no.95-ferrous fumarate-FA [] 28 mg iron- 800 mcg tablet 1 tab PO 1XD Referrals: Irvin Art MD [Primary Care Provider] - In 1 week Problem List Clinical Impression: Chest pain, Elevated troponin Patient/Caregiver Discharge Instructions Print Language: Kinyarwanda Stand Alone Forms: [employer] Award Info., Patient Portal Info Letter
[2025-07-03 17:15] LABS: Troponin I 0.182 ng/mL (0.0-0.045)
[2025-07-03] MEDS: ACETAMINOPHEN 500 MG TABLET 1000 MG PO (17:20)
--- NOTE | 2025-07-03 18:15 | ESHP_ITS ---
<Statement entered by Carli Feldman MD - 07/04/25 07:40> Pt is a 34 y/o F with no significant PMH other than pt has had gestational diabetes during her last presented with substernal chest pain. Pt described the pain to to be sharp, non radiating but associated with diaphoresis. Denied dizziness, SOB or syncopal episodes. Pt did endorse to having similar episodes several years ago which resolved on its own. EKG is sinus tachycardia with some delta wave in V2 and V3 but no acute ST or T wave changes. troponins uptrended, Per cardiology recommendations will admit pt to trend troponins and will obtain echo to rule out valvular pathology. will also order metoprolol xl 25mg. Per cardiology, no heparin drip for now low probability for ACS. Patient was seen and examined by me personally. I have directly supervised and reviewed documentation by the team resident and agree with its findings. ------- Plan of care was discussed with the attending, Dr. Dania Feldman, PGY-2 <Statement entered by Leslee Najera MD - 07/03/25 23:00> I attest that I was physically present for the evaluation, physical examination, lab and imaging review of the patient with the residents. I discussed the case with the residents and agree with the findings and plans of care as documented below. After examination of the patient and review of the clinical data I feel that this patient needs admission to the hospital for further treatment/evaluation Leslee Najera MD Documentation for date of: 07/03/25 HPI History of Present Illness Chief complaint: Chest pain History of present illness: Brigida Paz is a 34F pmhx significant for hx of gestational diabetes who presents with chest pain. States that this morning chest pain started at 10 AM while she was bending down to cone picker something from the ground, describes it as central with no radiation with associated shortness of breath, which has resolved, diaphoresis, and chills. Endorses that chest pain lasted until about 1 PM initially started out as 9/10 however much less now. Reports has had similar episode in 2020 and saw hydro mechanic twice and was sent to [place] due to language barrier however was lost to follow-up as patient did not have any more episodes of chest pain since then. Currently endorses 9/10 headache that started when she got to the hospital. Has not eaten or drink water since this morning. Denies recent illnesses, fever/chills prior to this episode, urinary symptoms, diarrea or constipation. PMHx: gestational diabetes Surgical Hx: none FHx: Noncontributory Social Hx: denies tobacco, alcohol or recreational or illicit drug use. [place] in the [employer]. Has 3 living children, one due to scorpion bite in [place] Allergies: NKDA Medications: none In ED, BP 119/85 HR 106 RR 18 afebrile satting 98% RA. Significant labs include trop 0.081, 0.182, glucose 91. In ED, given Tylenol 1g x1 and ASA 325 mg x1. EKG shows sinus tachycardia rate 104, no ST elevation, new delta waves in V2 and V3 not present in 2020 EKG. Patient was admitted for ACS workup. Review of Systems Review of Systems Systems Reviewed: All systems reviewed, normal except as documented Exam Vital Signs Temp Pulse Resp BP Pulse Ox O2 Del Method 98.4 F 80 20 118/83 98 Room Air 07/03/25 16:39 07/03/25 16:39 07/03/25 16:39 07/03/25 16:39 07/03/25 16:39 07/03/25 16:39 Narrative Exam GENERAL: AOx3, diaphoretic, shivering, obese, appears older than stated age HEENT: NC/AT, mucous membranes dry, bilateral sclera anicteric CARDIOVASCULAR: regular rate and rhythm, S1/S2 present, no murmurs appreciated PULMONARY: clear to auscultation bilaterally, no rales/rhonchi/wheezes ABDOMINAL: soft, non-tender, non-distended, no rebound/guarding, bowel sounds present EXTREMITIES: no peripheral edema SKIN: warm and dry, intact, no rashes NEURO: CN II-XII grossly intact, no focal deficits, alert, following commands Results: Labs 07/03/25 14:04 07/03/25 14:04 Labs: Short CBC 07/03/25 Range/Units 14:04 WBC 10.2 (3.6-11.0) Thou/mm3 Hgb 16.0 (12.0-16.0) g/dL Hct 45.2 (36.0-46.0) % Plt Count 307 (140-440) Thou/mm3 BMP 07/03/25 14:04 Sodium 142 Potassium 3.9 Chloride 108 H Carbon Dioxide 25.2 BUN 14 Creatinine 0.9 Glucose 94 Calcium 9.6 Cardiac Enzymes 07/03/25 07/03/25 Range/Units 14:04 16:33 Troponin I 0.081 H* 0.182 H* (0.0-0.045) ng/mL Liver Function 07/03/25 Range/Units 14:04 Total Bilirubin 0.5 (0.3-1.2) mg/dL AST 19 (0-34) U/L ALT 16 (10-49) U/L Alkaline Phosphatase 104 (46-116) U/L Albumin 4.1 (3.5-5.0) gm/dL Quality Measures Quality Measures none Medications Home Medications and Allergies Home Medications ?Medication ?Instructions ?Recorded ?Confirmed ?Type vit no.95-ferrous 1 tab PO 1XD 10/18/2411/08 History fumarate 28 mg-folic acid 800 mcg tablet () Allergies Allergy/AdvReac Type Severity Reaction Status Date / Time No Known Allergies Allergy Verified 07/03/25 13:20 Visit Medications Acetaminophen (Acetaminophen 325 Mg Tablet) 650 mg PO Q6H PRN PRN Reason: Fever >100.4 or pain Stop: 08/02/25 18:03 Heparin Sodium (Porcine) (Heparin Sod Inj 5000 Unit/Ml Vial) 5,000 unit SC Q12H MATTY Stop: 07/17/25 18:14 Ondansetron HCl (Ondansetron Inj 2 Mg/Ml Inj 2 Ml) 4 mg IVP Q6H PRN; Protocol PRN Reason: NAUSEA OR VOMITING Stop: 08/02/25 18:03 Sennosides (Senna Tablet) 1 tab PO QDAY PRN; Protocol PRN Reason: constipation Stop: 08/02/25 18:03 Discontinued Medications Acetaminophen (Acetaminophen 500 Mg Tablet) 1,000 mg PO X1 ONE Stop: 07/03/25 16:49 Last Admin: 07/03/25 17:20 Dose: 1,000 mg Aspirin (Aspirin 325 Mg Tablet) 325 mg PO X1 ONE Stop: 07/03/25 17:20 Last Admin: 07/03/25 17:36 Dose: 325 mg Assessment & Plan Plan Brigida Paz is a 34F pmhx significant for hx of gestational diabetes who presented to [facility] ED on 07/03 with chest pain, admitted for ACS workup. #Chest pain #NSTEMI type I vs type II #Sinus tachycardia Presents with 1 day history of central chest pain associated with diaphoresis, chills and shortness of breath. Endorses similar episode 2020 in which workup was unremarkable and patient visited hydro mechanic twice and was eventually lost to follow up. Reports no history of excessive clotting or bleeding. On admission HR 106, trops 0.081->0.182. EKG shows sinus tachycardia rate 104, no ST elevation, new delta waves in V2 and V3 not present in 2020 EKG. Ddx: Unstable angina, coronary vasospasm, not reproducible by sternal palpation or inspiration so less likely pleural or costochondritis origin, lower suspicion for NSTEMI type I Plan: - Cardiology consulted, recs appreciated: start metoprolol XL 25 mg QD, stat echocardiogram - F/u troponin q6h until downtrends - F/u INR/PT/PTT, UA, UDS, lipid panel, HbA1c - Telemetry for monitoring - CTM for chest pain, if recurs obtain EKG and repeat trops Hospital management: Lines: PIV Diet: Regular Bowel: Senna prn GI prophylaxis: not indicated DVT prophylaxis: heparin q12 Disposition: tele for ACS workup CODE STATUS: Full code Plan of care discussed with attending Dr. Najera, and PGY-2 Dr. Feldman. Racquel Gooden, DO PGY-1 Internal Medicine
--- NOTE | 2025-07-03 18:20 | PC.NURSE ---
SPOKE TO DR. Chaya MCINTOSH AND CLARIFIED IF OK TO GIVE PT'S HEPARIN 5,000UNITS SC MEDICATION EVEN WITHOUT ANY COAGULATION LABS DONE PRIOR FOR PT. PER DR. Chaya MCINTOSH, OK TO GIVE PT'S HEPARIN SC MEDICATION AT THIS TIME; IT SHOULD BE OK.
[2025-07-03] MEDS: HEPARIN SOD INJ 5000 UNIT/ML VIAL SC (18:26)
--- NOTE | 2025-07-03 18:47 | ESCONSULT_ITS ---
<Statement entered by Bob Thorpe MD - 07/09/25 22:52> I personally examined evaluated the patient emergency room with PGY 2 agree with the treatment plan recommendation I doubt very much patient had acute myocardial infarction she has tachycardia with stress-induced mild enzyme elevation recommended toFanoun continue medical management will recommend continue low-dose beta-vernon for now discharge home if the enzymes continue to go echo can be done as an outpatient. HPI Data of Consult Requesting Physician: Leslee Najera MD Admitting Provider: Leslee Najera MD Attending Provider: Leslee Najera MD Primary Care Provider: Irvin Art MD Consult Narrative History of present illness: 34-year-old female with a history of gestational diabetes presents to the ER with chest pain that started this morning while bending down, associated with shortness of breath (resolved), diaphoresis, and chills. The chest pain was central, non-radiating, and few hours, initially severe (9/10) but improved, associated with palpitations. A similar episode occurred in 2020 and again last year, where she was found to have SVT. Denies fever, recent illnesses, or gastrointestinal symptoms. Vitals in the ED show BP 119/85, HR 106, RR 18, and SpO2 98% on room air. Labs reveal elevated troponins (0.081, 0.182), normal glucose (91), and other stable markers. EKG shows sinus tachycardia with new delta waves in V2 and V3, absent in prior EKG. Given the presentation, she is admitted for ACS workup, with a differential diagnosis including NSTEMI type I vs. type II, and unstable angina. The patient has no significant bleeding/clotting history. Currently continued on METOPROLOL XL 25 mg daily, HR stable. Frequent troponin monitoring, and additional labs (INR, PTT, UA, lipid panel, HbA1c). Telemetry monitoring is initiated, and if chest pain recurs, repeat EKG and troponin tests will be performed. IMPRESSION: presentation most consistent with troponin elevation in settings of SVT. Low suspesion for acute IA given minimal trop elevation, resolution of chest pain, and normal EKG. No need for HEPARIN infusion. Continue tending troponin and monitoring symptoms. cc:: cc: Leslee Najera MD Review of Systems Review of Systems Systems Reviewed: All systems reviewed, normal except as documented Exam Vital Signs Temp Pulse Resp BP Pulse Ox O2 Del Method 98.4 F 76 19 139/98 H 98 Room Air 07/03/25 18:29 07/03/25 18:29 07/03/25 18:29 07/03/25 18:29 07/03/25 18:29 07/03/25 18:29 Narrative Exam GENERAL * Normal appearing female, NAD. HEENT * NCAT.?MARK. Oral mucosa is moist. Patent Nares NECK * Supple, nontender, no JVD. CHEST * RRR, no m/g/r * CTAB, no w/r/r, symmetrical expansion. ABDOMEN * Soft, flat, nontender. No guarding/rebound tenderness/masses. * Bowel sounds presents EXTREMITIES * No edema/cyanosis.? SKIN * Warm and dry, no jaundice/rashes. NEUROMUSCULAR * No lumbar or midline, no CVA, no paraspinal muscle spasm or tenderness. * Moves all 4 extremities well, with full ROM and good CSM. * MOFFETT x4, CN II-XII grossly intact. * No focal neurologic deficits. PSYCHIATRY * Normal mood and affect, cooperative, no SI or HI or hallucinations. Results Labs 07/03/25 14:04 07/03/25 14:04 Labs: Short CBC 07/03/25 Range/Units 14:04 WBC 10.2 (3.6-11.0) Thou/mm3 Hgb 16.0 (12.0-16.0) g/dL Hct 45.2 (36.0-46.0) % Plt Count 307 (140-440) Thou/mm3 BMP 07/03/25 14:04 Sodium 142 Potassium 3.9 Chloride 108 H Carbon Dioxide 25.2 BUN 14 Creatinine 0.9 Glucose 94 Calcium 9.6 Cardiac Enzymes 07/03/25 07/03/25 Range/Units 14:04 16:33 Troponin I 0.081 H* 0.182 H* (0.0-0.045) ng/mL Liver Function 07/03/25 Range/Units 14:04 Total Bilirubin 0.5 (0.3-1.2) mg/dL AST 19 (0-34) U/L ALT 16 (10-49) U/L Alkaline Phosphatase 104 (46-116) U/L Albumin 4.1 (3.5-5.0) gm/dL Quality Measures Quality Measures none Medications Home Medications and Allergies Home Medications ?Medication ?Instructions ?Recorded ?Confirmed ?Type vit no.95-ferrous 1 tab PO 1XD 10/18/2411/08 History fumarate 28 mg-folic acid 800 mcg tablet () Allergies Allergy/AdvReac Type Severity Reaction Status Date / Time No Known Allergies Allergy Verified 07/03/25 13:20 Visit Medications Acetaminophen (Acetaminophen 325 Mg Tablet) 650 mg PO Q6H PRN PRN Reason: Fever >100.4 or pain 1-3 Stop: 08/02/25 18:03 Heparin Sodium (Porcine) (Heparin Sod Inj 5000 Unit/Ml Vial) 5,000 unit SC Q12HR MATTY Stop: 07/17/25 18:14 Last Admin: 07/03/25 18:26 Dose: 5,000 unit Metoprolol Succinate (Metoprolol Succinate Xl 25 Mg Tabcr) 25 mg PO QDAY MATTY Stop: 08/02/25 18:44 Ondansetron HCl (Ondansetron Inj 2 Mg/Ml Inj 2 Ml) 4 mg IVP Q6H PRN; Protocol PRN Reason: NAUSEA OR VOMITING Stop: 08/02/25 18:03 Sennosides (Senna Tablet) 1 tab PO QDAY PRN; Protocol PRN Reason: constipation Stop: 08/02/25 18:03 Discontinued Medications Acetaminophen (Acetaminophen 500 Mg Tablet) 1,000 mg PO X1 ONE Stop: 07/03/25 16:49 Last Admin: 07/03/25 17:20 Dose: 1,000 mg Aspirin (Aspirin 325 Mg Tablet) 325 mg PO X1 ONE Stop: 07/03/25 17:20 Last Admin: 07/03/25 17:36 Dose: 325 mg Assessment & Plan Plan This is a 34 year-old female with PMHx of gestational diabetes admitted for acute episode of chest pain. 1. NSTEMI likely type 2 2. Hx Tachyarrhythmia A 34-year-old female presented with central, non-radiating chest pain that began this morning while bending down. The pain was initially severe (9/10) and associated with shortness of breath (resolved), diaphoresis, chills, and palpitations. She has a history of SVT, with similar chest pain episodes in 2020 and the previous year. In the ED, vitals were stable, but troponins were mildly elevated (0.081 ? 0.182), and EKG showed sinus tachycardia with new delta waves in V2?V3. Pain resolved without recurrence. ASSESSMENT: Chest pain likely secondary to SVT-related troponin elevation. Low suspicion for acute IA (NSTEMI). She is admitted for ACS workup, on telemetry, and will be monitored for recurrent symptoms. RECOMMENDATION: Admit to tele. Maintain normotensive state and avoid tachycardia. Maintain K>4.0 and Mag>2.0. Avoid proarrthmic drugs. No need for HEPARIN ggt at this point. Case was discussed with attending physician, Dr. Thorpe. Chente Brown, DO PGY II This document was transcribed using voice recognition technology. Minor inaccuracies may be present.
[2025-07-03 18:56] LABS: Collection Type, Urine Clean Catch
[2025-07-03 18:59] LABS: INR 1.0 (0.9-1.3); Partial Thromboplastin Time 29.3 Seconds (22.0-36.0); Prothrombin Time 11.3 Seconds (9.0-12.2)
[2025-07-03 19:08] LABS: Bacteria,Urine Rare; Bilirubin,Urine Negative (Negative); Blood,Urine Trace (Negative); Clarity,Urine Clear (Clear/Hazy); Color,Urine Lt-Yellow (Lt Yel-Yel); Culture Indicated,Urine Not Indicated; Glucose, Urine Negative (Negative); Ketones,Urine Negative (Negative); Leukocyte Esterase,Urine Positive (Negative); Nitrite,Urine Negative (Negative); PH,Urine 6.0 (5.0-7.0); Protein,Urine Negative (Neg - Trace); RBC,Urine 2 /hpf (0-3); Specific Gravity,Urine 1.025 (1.001-1.035); Squamous Epithelial Cell,Urine 9 /hpf (0-5); Urobilinogen,Urine Negative mg/dL (0.0-1.0); WBC,Urine 5 /hpf (0-5)
[2025-07-03 19:42] LABS: Amphetamine/Methamp Scrn,U Negative (Negative); Barbiturate Screen,Urine Negative (Negative); Benzodiazepines Screen,Urine Negative (Negative); Benzoylecgonine Screen, Ur Negative (Negative); Fentanyl Screen,Urine Negative (Negative); Opiate Screen,Urine Negative (Negative); THC Screen,Urine Negative (Negative)
[2025-07-03 20:23] LABS: Troponin I 0.183 ng/mL (0.0-0.045)
[2025-07-04] VITALS: BP 110/72; PULSE 61; RESP 16; TEMP 36.1; O2SAT 99
[2025-07-04 00:10] LABS: Troponin I 0.143 ng/mL (0.0-0.045)
[2025-07-04 04:00] VITALS: BP 104/71; PULSE 61; RESP 16; TEMP 36.5; O2SAT 99
[2025-07-04 05:37] VITALS: BMI 42.2
[2025-07-04 05:48] LABS: Basophils # (Auto) 0.1 Thou/mm3 (0.0-0.2); Basophils % (Auto) 1 % (0-2.5); Eosinophils # (Auto) 0.3 Thou/mm3 (0.0-0.5); Eosinophils % (Auto) 3 % (0-10); Hematocrit 42.7 % (36.0-46.0); Hemoglobin 14.7 g/dL (12.0-16.0); Immature Granulocytes Auto 0.04 Thou/mm3 (0.00-0.00); Lymphocytes # (Auto) 2.5 Thou/mm3 (1.0-4.8); Lymphocytes % (Auto) 30 % (10-50); Mean Corpuscular HGB Conc 34.4 g/dl (31.0-37.0); Mean Corpuscular Hemoglobin 29.8 pg (25.0-35.0); Mean Corpuscular Volume 86 fL (80-100); Monocytes # (Auto) 0.7 Thou/mm3 (0.0-0.8); Monocytes % (Auto) 8 % (0-12); Neutrophils # (Auto) 4.9 Thou/mm3 (1.8-7.7); Neutrophils % (Auto) 58 % (37-80); Nucleated Red Blood Cell # 0.00 Thou/mm3 (0.00-0.00); Nucleated Red Blood Cell % 0 /100 WBC (0); Platelet Count 272 Thou/mm3 (140-440); RDW Standard Deviation 44.9 fL (36.4-46.3); Red Blood Count 4.94 Miln/mm3 (4.00-5.20); White Blood Count 8.5 Thou/mm3 (3.6-11.0)
[2025-07-04 05:57] LABS: Glucose Estimated Average 103 mg/dL (80-131); Hemoglobin A1C 5.2 % Hgb (4.8-6.0)
[2025-07-04 06:05] LABS: INR 1.1 (0.9-1.3); Partial Thromboplastin Time 27.6 Seconds (22.0-36.0); Prothrombin Time 11.8 Seconds (9.0-12.2)
[2025-07-04 06:19] LABS: Alanine Aminotransferase 12 U/L (10-49); Albumin, Serum 3.7 gm/dL (3.5-5.0); Albumin/Globulin Ratio 1.5 (1.2-2.2); Alkaline Phosphatase 89 U/L (46-116); Anion Gap 11 (7-16); Aspartate Amino Transferase 15 U/L (0-34); BUN/Creatinine Ratio 13 Ratio (12-20); Bilirubin,Total 0.9 mg/dL (0.3-1.2); Blood Urea Nitrogen 9 mg/dL (9-23); Calcium 9.1 mg/dL (8.3-10.6); Calcium (Corrected) 9.3 mg/dL (8.5-10.1); Carbon Dioxide 23.0 mMol/L (20.0-31.0); Cardiac Risk Estimate 4.4 RATIO (3.7-5.6); Chloride 108 mMol/L (98-107); Cholesterol 141 mg/dL (132-200); Creatinine (Component) 0.7 mg/dL (0.6-1.3); Estimated Creatinine Clearance 113.1 mL/min (>60); Globulin 2.5 gm/dL (2.3-3.5); Glucose 87 mg/dL (74-106); HDL Cholesterol 32 mg/dL (40-60); LDL Cholesterol,Calculated 92 mg/dL (0-130); Magnesium 2.1 mg/dL (1.6-2.6); Osmolality,Calculated 280 (275-295); Potassium 3.6 mMol/L (3.4-5.1); Sodium 142 mMol/L (136-145); Thyroid Stimulating Hormone 3.19 uIU/mL (0.55-4.78); Total Protein 6.2 gm/dL (5.7-8.2); Triglycerides 83 mg/dL (30-150); eGFR > 60 See Note
[2025-07-04 06:20] LABS: Troponin I 0.081 ng/mL (0.0-0.045)
[2025-07-04 07:38] VITALS: BP 110/70; PULSE 86; RESP 16; TEMP 36.6; O2SAT 97
[2025-07-04 08:00] VITALS: PULSE 66
[2025-07-04 08:02] VITALS: BP 110/70; PULSE 86
[2025-07-04] MEDS: METOPROLOL SUCCINATE XL 25 MG TABCR PO (08:02)
[2025-07-04] MEDS: HEPARIN SOD INJ 5000 UNIT/ML VIAL SC (08:03)
--- NOTE | 2025-07-04 09:04 | PC.SS ---
Follow up note: Echo pending. Dr. Thorpe recommendations pending.
--- NOTE | 2025-07-04 10:20 | PD.RESPRO ---
Documentation for date of: 07/04/25 Exam Vital Signs Temp Pulse Resp BP Pulse Ox O2 Del Method 98 F 86 16 110/70 97 Room Air 07/04/25 07:38 07/04/25 08:02 07/04/25 07:38 07/04/25 08:02 07/04/25 07:38 07/04/25 07:38 Objective Labs 07/04/25 04:27 07/04/25 04:27 Labs: Laboratory Results - last 24 hr 07/03/25 07/03/25 07/03/25 14:04 16:33 18:51 WBC 10.2 RBC 5.31 H Hgb 16.0 Hct 45.2 MCV 85 MCH 30.1 MCHC 35.4 RDW Std Deviation 43.4 Plt Count 307 Neut % (Auto) 70 Lymph % (Auto) 21 [place] % (Auto) 7 Eos % (Auto) 1 Baso % (Auto) 0 Neut # (Auto) 7.2 Lymph # (Auto) 2.1 [place] # (Auto) 0.8 Eos # (Auto) 0.1 Baso # (Auto) 0.0 Immature Gran # (Auto) 0.05 H Absolute Nucleated RBC 0.00 Immature Gran % 1 H Nucleated RBC % 0 PT 11.3 INR 1.0 APTT 29.3 D-Dimer < 250 Sodium 142 Potassium 3.9 Chloride 108 H Carbon Dioxide 25.2 Anion Gap 9 BUN 14 Creatinine 0.9 Estim Creat Clear Calc 86.9 eGFR > 60 BUN/Creatinine Ratio [address] Glu mg/dL Hemoglobin A1c Calculated Osmolality 283 Calcium 9.6 Corrected Calcium 9.6 Magnesium Total Bilirubin 0.5 AST 19 ALT 16 Alkaline Phosphatase 104 Troponin I 0.081 H* 0.182 H* Total Protein 6.8 Albumin 4.1 Globulin 2.7 Albumin/Globulin Ratio 1.5 Triglycerides Cholesterol LDL Cholesterol, Calc HDL Cholesterol Cholesterol/HDL Ratio TSH HCG, Qual Negative Ur Collection Type Clean Catch Urine Color Lt-Yellow Urine Clarity Clear Urine pH 6.0 Ur Specific [place] 1.025 Urine Protein Negative Urine Glucose (UA) Negative Urine Ketones Negative Urine Blood Trace Urine Nitrite Negative Urine Bilirubin Negative Urine Urobilinogen (Auto) Negative Ur Leukocyte Esterase Positive Urine RBC 2 Urine WBC 5 Ur Squamous Epith Cells 9 H Urine Bacteria Rare Ur Culture Indicated? Not Indicated Urine Opiates Screen Negative Urine Fentanyl Screen Negative Ur Barbiturates Screen Negative U Amphetamin/Meth Scrn Negative U Benzodiazepines Scrn Negative U Cocaine Metab Screen Negative U Marijuana (THC) Screen Negative 07/03/25 07/03/25 07/04/25 19:45 23:14 04:27 WBC 8.5 RBC 4.94 Hgb 14.7 Hct 42.7 MCV 86 MCH 29.8 MCHC 34.4 RDW Std Deviation 44.9 Plt Count 272 D Neut % (Auto) 58 Lymph % (Auto) 30 [place] % (Auto) 8 Eos % (Auto) 3 Baso % (Auto) 1 Neut # (Auto) 4.9 Lymph # (Auto) 2.5 [place] # (Auto) 0.7 Eos # (Auto) 0.3 Baso # (Auto) 0.1 Immature Gran # (Auto) 0.04 H Absolute Nucleated RBC 0.00 Immature Gran % 1 H Nucleated RBC % 0 PT 11.8 INR 1.1 APTT 27.6 D-Dimer Sodium 142 Potassium 3.6 Chloride 108 H Carbon Dioxide 23.0 Anion Gap 11 BUN 9 Creatinine 0.7 Estim Creat Clear Calc 113.1 eGFR > 60 BUN/Creatinine Ratio [address] Glu mg/dL 103 Hemoglobin A1c 5.2 Calculated Osmolality 280 Calcium 9.1 Corrected Calcium 9.3 Magnesium 2.1 Total Bilirubin 0.9 AST 15 ALT 12 Alkaline Phosphatase 89 Troponin I 0.183 H* 0.143 H* 0.081 H* Total Protein 6.2 Albumin 3.7 Globulin 2.5 Albumin/Globulin Ratio 1.5 Triglycerides 83 Cholesterol 141 LDL Cholesterol, Calc 92 HDL Cholesterol 32 L Cholesterol/HDL Ratio 4.4 TSH 3.19 HCG, Qual Ur Collection Type Urine Color Urine Clarity Urine pH Ur Specific [place] Urine Protein Urine Glucose (UA) Urine Ketones Urine Blood Urine Nitrite Urine Bilirubin Urine Urobilinogen (Auto) Ur Leukocyte Esterase Urine RBC Urine WBC Ur Squamous Epith Cells Urine Bacteria Ur Culture Indicated? Urine Opiates Screen Urine Fentanyl Screen Ur Barbiturates Screen U Amphetamin/Meth Scrn U Benzodiazepines Scrn U Cocaine Metab Screen U Marijuana (THC) Screen Quality Measures Quality Measures none Assessment & Plan Assessment Current Active Medications: Generic Name Dose Route Start Last Admin Trade Name Freq PRN Reason Stop Dose Admin Acetaminophen 650 mg 07/03/25 18:04 Acetaminophen 325 Mg Tablet PO 08/02/25 18:03 Q6H PRN Fever >100.4 or pain 1-3 Heparin Sodium (Porcine) 5,000 unit 07/03/25 18:15 07/04/25 08:03 Heparin Sod Inj 5000 Unit/Ml Vial SC 07/17/25 18:14 5,000 unit Q12HR MATTY Administration Metoprolol Succinate 25 mg 07/03/25 18:45 07/04/25 08:02 Metoprolol Succinate Xl 25 Mg Tabcr PO 08/02/25 18:44 25 mg QDAY MATTY Administration Ondansetron HCl 4 mg 07/03/25 18:04 Ondansetron Inj 2 Mg/Ml Inj 2 Ml IVP 08/02/25 18:03 Q6H PRN NAUSEA OR VOMITING Protocol Sennosides 1 tab 07/03/25 18:04 Senna Tablet PO 08/02/25 18:03 QDAY PRN constipation Protocol
[2025-07-04 12:00] VITALS: BP 99/65; PULSE 64; PULSE 65; RESP 16; TEMP 36.6; O2SAT 99
--- NOTE | 2025-07-04 13:19 | ESDS_ITS ---
<Statement entered by Ct Flower DO - 07/05/25 14:47> I, Ct Flower DO, attest that I was physically present for the coffey portions of the service and evaluated the patient with the resident and I reviewed and discussed the case with the resident and agree with the resident's findings and plans of care as documented above <Statement entered by Keyona Puga MD - 07/05/25 14:36> Patient was seen and examined by me personally. I have reviewed the below documentation by the team resident and agree with its findings. Discharge plan was discussed with the attending, Dr. Ct Flower. 34-year-old female with past medical history of gestational diabetes mellitus admitted for cardiac chest pain, minimal troponin elevation noted, troponins peaked and downtrending. Patient did describe her chest pain as substernal tightness associated with nausea and diaphoresis, did not experience another episode during the hospitalization. EKG did not show any acute ST-T changes, cardiology was consulted cardiology recommended outpatient echocardiogram and follow-up. Patient will be discharged on metoprolol succinate, patient to monitor blood pressure at home, follow-up with primary care physician and junk removal specialist outpatient. Patient is stable for discharge, responded well to hospital treatment. Keyona Puga MD Internal Medicine, PGY-2 Planned Discharge Date 07/04/25 DS: Providers Provider Date of admission: 07/03/25 18:04 Primary care physician: Irvin Art MD Admitting Provider: Leslee Najera MD Attending Provider on Admission: Ct Flower DO Consults: 07/03/25 18:15 Consult to Cardiology Stat Comment: NSTEMI Consulting Provider: Bob Thorpe Attending Provider on DC: Ct Flower DO Discharging Provider: Ct Flower DO Anticipated date of discharge: 07/04/25 DS: Diagnosis Problem List Completed Was Problem List Reviewed/Reconciled?: Yes Hospital Course Hospital Course Hospital course: Summary Brigida Paz is a 34F pmhx significant for hx of gestational diabetes who presented to [facility] ED on 07/03 with chest pain, admitted for ACS workup. In the ED vitals were within normal limits. Troponin 0.081, downtrending. She was given Tylenol, aspirin 25 mg, metroprolol. EKGs showed sinus tachycardia rate 104, no ST elevation. CXR no pneumonia or pulmonary edema. Chest pain resolve, patient observed overnight. Cardiology recommends outpatient echocardiogram and follow-up. Throughout the hospital course patient other problems were managed. Further plan to discharge the patient home with antibiotics course since she is hemodynamically stable to be discharged home to self care with the following instructions. Discharge recommendation: -Check your Blood Pressure at Home and follow up with PCP for optimization of control, continue Metoprolol as below -Follow up with PCP within 1 week of discharge, if you do not have a primary care physician you can come see us at the [facility] by calling [phone] -Please closely follow up with [facility] Long outpatient -Return to the ED or call EMS if symptoms return and/or worsen Hospital Diagnoses: #Atypical Chest pain #ACS Ruled Out #NSTEMI type II #Sinus tachycardia Patient seen and assessed under supervision of attending physician and discuss with senior resident Dr. uPga PGY-2 Hayley Marie MD PGY-1, Internal Medicine Time Spent with Patient Time attestation: Total time spent providing and/or coordinating discharge services: Time spent: Greater than 30 minutes Exam Vital Signs Temp Pulse Resp BP Pulse Ox O2 Del Method 97.9 F 64 16 99/65 99 Room Air 07/04/25 12:00 07/04/25 12:00 07/04/25 12:00 07/04/25 12:00 07/04/25 12:07/04/25 12:00 Narrative Exam GENERAL: AOx3, diaphoretic, shivering, obese, appears older than stated age HEENT: NC/AT, mucous membranes moist, bilateral sclera anicteric CARDIOVASCULAR: regular rate and rhythm, S1/S2 present, no murmurs appreciated PULMONARY: clear to auscultation bilaterally, no rales/rhonchi/wheezes ABDOMINAL: soft, non-tender, non-distended, no rebound/guarding, bowel sounds present EXTREMITIES: no peripheral edema SKIN: warm and dry, intact, no rashes NEURO: CN II-XII grossly intact, no focal deficits, alert, following commands Discharge Plan Plan Patient Disposition: HOME (Self Care) Patient condition on transfer: Stable Care Plan Goals: -Check your Blood Pressure at Home and follow up with PCP for optimization of control, continue Metoprolol as below -Follow up with PCP within 1 week of discharge, if you do not have a primary care physician you can come see us at the [facility] by calling [phone] -Please closely follow up with [facility] Dr[facility] Long outpatient -Return to the ED or call EMS if symptoms return and/or worsen Prescriptions/Referrals Prescriptions/Med Rec: New metoprolol succinate 25 mg Tablet Extended Release 24 Hr 25 mg PO QDAY 30 Days Qty: 30 0RF (DME) blood pressure kit-extra large Kit See Rx Instructions .Route Qty: 1 0RF Rx Instructions: As directed Referrals: Keyana Long MD [Referring Provider] - Irvin Art MD [Primary Care Provider] - Patient/Caregiver Discharge Instructions Discharge Activity: activity as tolerated Education Materials: Your Heart Is at Risk, ED Chest Pain, Uncertain Cause Print Language: Czech Stand Alone Forms: Kimberly Award Info., Patient Portal Info Letter Discharge Order Discharge Orders: Discharge (Routine); Ordered 07/04/25 Ordered By: Keyona Puga Quality Discharge Quality Measures VTE prophylaxis
--- NOTE | 2025-07-04 13:48 | ESPR_ITS ---
<Statement entered by Bob Thorpe MD - 07/09/25 22:53> The patient had no chest pain shortness of breath overnight enzymes came down again clinically she is doing well patient can be discharged no further workup as an outpatient Documentation for date of: 07/04/25 Subjective Subjective Interval history: No acute overnight events. She is doing well today. No cardiac symptoms overnight an current, no chest pain or sob or palpitations. Exam Vital Signs Temp Pulse Resp BP Pulse Ox O2 Del Method 97.9 F 64 16 99/65 99 Room Air 07/04/25 12:00 07/04/25 12:00 07/04/25 12:00 07/04/25 12:00 07/04/25 12:00 07/04/25 12:00 Narrative Exam GENERAL * Normal appearing female, NAD. HEENT * NCAT.?MARK. Oral mucosa is moist. Patent Nares NECK * Supple, nontender, no JVD. CHEST * RRR, no m/g/r * CTAB, no w/r/r, symmetrical expansion. ABDOMEN * Soft, flat, nontender. No guarding/rebound tenderness/masses. * Bowel sounds presents EXTREMITIES * No edema/cyanosis.? SKIN * Warm and dry, no jaundice/rashes. NEUROMUSCULAR * No lumbar or midline, no CVA, no paraspinal muscle spasm or tenderness. * Moves all 4 extremities well, with full ROM and good CSM. * MOFFETT x4, CN II-XII grossly intact. * No focal neurologic deficits. PSYCHIATRY * Normal mood and affect, cooperative, no SI or HI or hallucinations. Objective Labs 07/04/25 04:27 07/04/25 04:27 Labs: Laboratory Results - last 24 hr 07/03/25 07/03/25 07/03/25 14:04 16:33 18:51 WBC 10.2 RBC 5.31 H Hgb 16.0 Hct 45.2 MCV 85 MCH 30.1 MCHC 35.4 RDW Std Deviation 43.4 Plt Count 307 Neut % (Auto) 70 Lymph % (Auto) 21 [place] % (Auto) 7 Eos % (Auto) 1 Baso % (Auto) 0 Neut # (Auto) 7.2 Lymph # (Auto) 2.1 [place] # (Auto) 0.8 Eos # (Auto) 0.1 Baso # (Auto) 0.0 Immature Gran # (Auto) 0.05 H Absolute Nucleated RBC 0.00 Immature Gran % 1 H Nucleated RBC % 0 PT 11.3 INR 1.0 APTT 29.3 D-Dimer < 250 Sodium 142 Potassium 3.9 Chloride 108 H Carbon Dioxide 25.2 Anion Gap 9 BUN 14 Creatinine 0.9 Estim Creat Clear Calc 86.9 eGFR > 60 BUN/Creatinine Ratio [address] Glu mg/dL Hemoglobin A1c Calculated Osmolality 283 Calcium 9.6 Corrected Calcium 9.6 Magnesium Total Bilirubin 0.5 AST 19 ALT 16 Alkaline Phosphatase 104 Troponin I 0.081 H* 0.182 H* Total Protein 6.8 Albumin 4.1 Globulin 2.7 Albumin/Globulin Ratio 1.5 Triglycerides Cholesterol LDL Cholesterol, Calc HDL Cholesterol Cholesterol/HDL Ratio TSH HCG, Qual Negative Ur Collection Type Clean Catch Urine Color Lt-Yellow Urine Clarity Clear Urine pH 6.0 Ur Specific [place] 1.025 Urine Protein Negative Urine Glucose (UA) Negative Urine Ketones Negative Urine Blood Trace Urine Nitrite Negative Urine Bilirubin Negative Urine Urobilinogen (Auto) Negative Ur Leukocyte Esterase Positive Urine RBC 2 Urine WBC 5 Ur Squamous Epith Cells 9 H Urine Bacteria Rare Ur Culture Indicated? Not Indicated Urine Opiates Screen Negative Urine Fentanyl Screen Negative Ur Barbiturates Screen Negative U Amphetamin/Meth Scrn Negative U Benzodiazepines Scrn Negative U Cocaine Metab Screen Negative U Marijuana (THC) Screen Negative 07/03/25 07/03/25 07/04/25 19:45 23:14 04:27 WBC 8.5 RBC 4.94 Hgb 14.7 Hct 42.7 MCV 86 MCH 29.8 MCHC 34.4 RDW Std Deviation 44.9 Plt Count 272 D Neut % (Auto) 58 Lymph % (Auto) 30 [place] % (Auto) 8 Eos % (Auto) 3 Baso % (Auto) 1 Neut # (Auto) 4.9 Lymph # (Auto) 2.5 [place] # (Auto) 0.7 Eos # (Auto) 0.3 Baso # (Auto) 0.1 Immature Gran # (Auto) 0.04 H Absolute Nucleated RBC 0.00 Immature Gran % 1 H Nucleated RBC % 0 PT 11.8 INR 1.1 APTT 27.6 D-Dimer Sodium 142 Potassium 3.6 Chloride 108 H Carbon Dioxide 23.0 Anion Gap 11 BUN 9 Creatinine 0.7 Estim Creat Clear Calc 113.1 eGFR > 60 BUN/Creatinine Ratio [address] Glu mg/dL 103 Hemoglobin A1c 5.2 Calculated Osmolality 280 Calcium 9.1 Corrected Calcium 9.3 Magnesium 2.1 Total Bilirubin 0.9 AST 15 ALT 12 Alkaline Phosphatase 89 Troponin I 0.183 H* 0.143 H* 0.081 H* Total Protein 6.2 Albumin 3.7 Globulin 2.5 Albumin/Globulin Ratio 1.5 Triglycerides 83 Cholesterol 141 LDL Cholesterol, Calc 92 HDL Cholesterol 32 L Cholesterol/HDL Ratio 4.4 TSH 3.19 HCG, Qual Ur Collection Type Urine Color Urine Clarity Urine pH Ur Specific [place] Urine Protein Urine Glucose (UA) Urine Ketones Urine Blood Urine Nitrite Urine Bilirubin Urine Urobilinogen (Auto) Ur Leukocyte Esterase Urine RBC Urine WBC Ur Squamous Epith Cells Urine Bacteria Ur Culture Indicated? Urine Opiates Screen Urine Fentanyl Screen Ur Barbiturates Screen U Amphetamin/Meth Scrn U Benzodiazepines Scrn U Cocaine Metab Screen U Marijuana (THC) Screen 07/04/25 10:00 WBC RBC Hgb Hct MCV MCH MCHC RDW Std Deviation Plt Count Neut % (Auto) Lymph % (Auto) [place] % (Auto) Eos % (Auto) Baso % (Auto) Neut # (Auto) Lymph # (Auto) [place] # (Auto) Eos # (Auto) Baso # (Auto) Immature Gran # (Auto) Absolute Nucleated RBC Immature Gran % Nucleated RBC % PT INR APTT D-Dimer Sodium Potassium Chloride Carbon Dioxide Anion Gap BUN Creatinine Estim Creat Clear Calc eGFR BUN/Creatinine Ratio Glucose Estimated Ave Glu mg/dL Hemoglobin A1c Calculated Osmolality Calcium Corrected Calcium Magnesium Total Bilirubin AST ALT Alkaline Phosphatase Troponin I Cancelled Total Protein Albumin Globulin Albumin/Globulin Ratio Triglycerides Cholesterol LDL Cholesterol, Calc HDL Cholesterol Cholesterol/HDL Ratio TSH HCG, Qual Ur Collection Type Urine Color Urine Clarity Urine pH Ur Specific [place] Urine Protein Urine Glucose (UA) Urine Ketones Urine Blood Urine Nitrite Urine Bilirubin Urine Urobilinogen (Auto) Ur Leukocyte Esterase Urine RBC Urine WBC Ur Squamous Epith Cells Urine Bacteria Ur Culture Indicated? Urine Opiates Screen Urine Fentanyl Screen Ur Barbiturates Screen U Amphetamin/Meth Scrn U Benzodiazepines Scrn U Cocaine Metab Screen U Marijuana (THC) Screen Quality Measures Quality Measures none Assessment & Plan Assessment Current Active Medications: Generic Name Dose Route Start Last Admin Trade Name Freq PRN Reason Stop Dose Admin Acetaminophen 650 mg 07/03/25 18:04 Acetaminophen 325 Mg Tablet PO 08/02/25 18:03 Q6H PRN Fever >100.4 or pain 1-3 Heparin Sodium (Porcine) 5,000 unit 07/03/25 18:15 07/04/25 08:03 Heparin Sod Inj 5000 Unit/Ml Vial SC 07/17/25 18:14 5,000 unit Q12HR MATTY Administration Metoprolol Succinate 25 mg 07/03/25 18:45 07/04/25 08:02 Metoprolol Succinate Xl 25 Mg Tabcr PO 08/02/25 18:44 25 mg QDAY MATTY Administration Ondansetron HCl 4 mg 07/03/25 18:04 Ondansetron Inj 2 Mg/Ml Inj 2 Ml IVP 08/02/25 18:03 Q6H PRN NAUSEA OR VOMITING Protocol Sennosides 1 tab 07/03/25 18:04 Senna Tablet PO 08/02/25 18:03 QDAY PRN constipation Protocol Plan This is a 34 year-old female with PMHx of gestational diabetes admitted for acute episode of chest pain. 1. NSTEMI likely type 2 2. Hx Tachyarrhythmia A 34-year-old female presented with central, non-radiating chest pain that began this morning while bending down. The pain was initially severe (9/10) and associated with shortness of breath (resolved), diaphoresis, chills, and palpitations. She has a history of SVT, with similar chest pain episodes in 2020 and the previous year. In the ED, vitals were stable, but troponins were mildly elevated but downtrending, and EKG showed sinus tachycardia with new delta waves in V2?V3. Pain resolved without recurrence. ASSESSMENT: Chest pain likely secondary to SVT-related troponin elevation. Low suspicion for acute OR (NSTEMI). She is admitted for ACS workup, on telemetry, and will be monitored for recurrent symptoms. RECOMMENDATION: Maintain normotensive state and avoid tachycardia. Maintain K>4.0 and Mag>2.0. Avoid proarrthmic drugs. No need for HEPARIN ggt at this point. She maybe discharged to follow-up closely with cardiology for outpatient workup. Case was discussed with attending physician, Dr. Thorpe. Chente Brown, DO PGY II This document was transcribed using voice recognition technology. Minor inaccuracies may be present.
== END 2025-07-04 15:30 | disposition home or self-care (01) | DRG 201 ==
LOC: SERX 17:23 → SERHOLD 18:32 → S2NX 20:37
PROVIDERS: Nurse Practitioner Family; Nurse Practitioner Primary Care; Physician Assistant; Admitting Provider Student in an Organized Health Care Education/Training Program; Emergency Provider Family Medicine; PCP Family Medicine; Visit Provider Internal Medicine
DX: I47.10 Supraventricular tachycardia, unspecified (principal); I21.A1 Myocardial infarction type 2; Z86.32 Personal history of gestational diabetes; I47.20 Ventricular tachycardia, unspecified
CPT/HCPCS: 36415; 71046; 80053; 80061; 80307; 81001; 83036; 83735; 84443; 84484; 84703; 85025; 85379; 85610; 85730; 87400; 87811; 93005; 96372; 99284; J1644; A9270